=== PATIENT | female | born 1945 | race Hispanic/Latino ===

== ENCOUNTER 2018-08-08 21:06 | Observation (INO) | payer MEDICARE, OTHER ==
[2018-08-08] MEDS ORDERED: Aspirin 325 mg EC Tablets PO STA (22:08)
[2018-08-08] MEDS ORDERED: Nitroglycerin 2% Ointment Foilpak UD TOP STA (22:08)
--- NOTE | 2018-08-08 22:08 | C.PDOC ---
History Of Present Illness 73 year old female presents to the ED c/o on and off burning chest pain that started 4 hours ago. Patient reports the episodes last 5 minutes and the resolved. Patient had angioplasty done on Saturday that was normal, study was done by Dr. Johns. Patient states today she started feeling the burning chest pain. Patient denies fever, chills, SOB, nausea, vomit, dizziness, headache, weakness, numbness. Time Seen by Provider: 08/08/18 21:47 Chief Complaint (Nursing): Chest Pain History Per: Patient History/Exam Limitations: no limitations Onset/Duration Of Symptoms: Hrs (4), Intermittent Episodes Current Symptoms Are (Timing): Still Present Severity: None Quality: Burning Recent travel outside of the [place]: No Additional History Per: Patient Past Medical History Reviewed: Historical Data, Nursing Documentation, Vital Signs Vital Signs: Last Vital Signs Temp 97.7 F 08/08/18 21:16 Pulse 68 08/08/18 21:16 Resp 20 08/08/18 21:16 BP 156/80 H 08/08/18 21:16 Pulse Ox 95 08/08/18 21:16 - Medical History PMH: No Chronic Diseases Surgical History: No Surg Hx Family History: States: Unknown Family Hx - Social History Hx Alcohol Use: No Hx Substance Use: No - Immunization History Hx Tetanus Toxoid Vaccination: No Hx Influenza Vaccination: No Hx Pneumococcal Vaccination: No Review Of Systems Constitutional: Negative for: Fever, Chills Cardiovascular: Positive for: Chest Pain. Negative for: Palpitations Respiratory: Negative for: Shortness of Breath Gastrointestinal: Negative for: Nausea, Vomiting Neurological: Negative for: Weakness, Numbness, Headache Psych: Negative for: Depression, Suicidal ideation Physical Exam - Physical Exam Appears: Non-toxic, No Acute Distress Skin: Normal Color, Warm, Dry Head: Atraumatic, Normacephalic Eye(s): bilateral: Normal Inspection Neck: Normal ROM, Supple Chest: Symmetrical Cardiovascular: Rhythm Regular Respiratory: Normal Breath Sounds, No Rales, No Rhonchi, No Wheezing Gastrointestinal/Abdominal: Soft, No Tenderness, No Guarding, No Rebound Extremity: Normal ROM, No Tenderness, No Swelling Neurological/Psych: Oriented x3, Normal Speech, Normal Cognition Gait: Steady ED Course And Treatment - Laboratory Results Result Diagrams: 08/08/18 22:23 08/08/18 22:23 ECG: Interpreted By Me ECG Rhythm: Sinus Rhythm ECG Interpretation: Normal Rate From EC O2 Sat by Pulse Oximetry: 95 (ON RA) Pulse Ox Interpretation: Normal - Radiology CXR: Interpreted by Me, Viewed By Me CXR Interpretation: Yes: No Acute Disease. No: Infiltrates - CT Scan/US CT chest Other Rad Studies (CT/US): Read By Radiologist, Radiology Report Reviewed CT/US Interpretation: CT SCAN OF THE CHEST WITHOUT IV CONTRAST. CLINICAL INDICATION: Chest pain. TECHNIQUE: Axial and reformatted sagittal and coronal images of the chest obtained without IV contrast administration. FINDINGS: Normal unenhanced main pulmonary artery and right and left pulmonary arteries. Normal bilateral peripheral pulmonary arteries. Normal thoracic aorta and visualized great vessels. There is no demonstrated aortic aneurysm. Normal heart and pericardium. Normal mediastinum. Normal hilar regions. Normal visualized trachea and bronchi. Bilateral basilar atelectatic pulmonary changes. The lungs are well expanded. Normal pulmonary parenchyma. Normal pleura. Normal chest wall structures. Spondylosis. Normal visualized upper abdomen. IMPRESSION: No CT evidence of acute pathology. . Electronically signed on Aug 09, 2018 12:34:56 AM EDT by: Rosalina Grover M.D., Certified by ABR, MSK, Neuroradiology Progress - Re-Evaluation Re-evaluation Note: 08/08/18 22:08 D/W DR JOHNS STATES ANGIO WAS "NORMAL". RECOMMENDS OBS, WILL CONSULT 08/08/18 22:[address] Enoch GUIDRY C/F PMD WILL ADMIT - Data Reviewed Data Reviewed: Lab, Diagnostic imaging, EKG, Old records Medical Decision Making Medical Decision Making: Plan: * EKG * Labs * CXR * Aspiring 325 mg PO * Nitroglycerin 1 ea TOP Disposition Counseled Patient/Family Regarding: Studies Performed, Diagnosis - Disposition Disposition: HOSPITALIZED Disposition Time: 22:14 Condition: STABLE - POA Present On Arrival: None - Clinical Impression Clinical Impression: Chest pain - Scribe Statement The provider has reviewed the documentation as recorded by the Scribe Aj Garcia All medical record entries made by the Scribe were at my direction and personally dictated by me. I have reviewed the chart and agree that the record accurately reflects my personal performance of the history, physical exam, medical decision making, and the department course for this patient. I have also personally directed, reviewed, and agree with the discharge instructions and disposition.
[2018-08-08] MEDS ORDERED: Nitroglycerin 2% Ointment Foilpak UD TOP ONE (22:26)
[2018-08-08] MEDS ORDERED: Aspirin 325 mg EC Tablets PO ONE (22:26)
[2018-08-08 22:33] LABS: BASO % 0.4 % (0.0-2.0); EOS # 0.3 K/uL (0.0-0.7); EOS % 2.8 % (0.0-4.0); HEMOGLOBIN 14.2 g/dL (11.0-16.0); LYMPH # 4.5 K/uL (1.0-4.3); LYMPH % 43.7 % (20.0-40.0); MEAN CELL VOLUME 89.2 fL (81.0-99.0); MEAN CORPUSCULAR HEMOGLOBIN 29.8 pg (27.0-31.0); MEAN CORPUSCULAR HGB CONC 33.5 g/dL (33.0-37.0); MEAN PLATELET VOLUME 8.4 fL (7.2-11.7); MONO # 0.9 K/uL (0.0-0.8); MONO % 8.5 % (0.0-10.0); NEUT # 4.6 K/uL (1.8-7.0); NEUT % 44.6 % (50.0-75.0); NRBC % 0.1 % (0.0-2.0); RBC 4.76 Mil/uL (3.80-5.20); RED CELL DISTRIBUTION WIDTH 13.8 % (11.5-14.5); WHITE BLOOD COUNT 10.4 K/uL (4.8-10.8)
[2018-08-08 22:38] LABS: INR 1.1; PROTHROMBIN TIME 11.5 SECONDS (9.7-12.2)
[2018-08-08 22:41] LABS: ALB/GLOB RATIO 1.1 (1.0-2.1); ALBUMIN 4.1 g/dL (3.5-5.0); ALT/SGPT 14 U/L (9-52); AST/SGOT 20 U/L (14-36); BLOOD UREA NITROGEN 20 mg/dL (7-17); CALCIUM 9.6 mg/dl (8.6-10.4); GFR NON-AFRICAN AMERICAN > 60
--- NOTE | 2018-08-08 23:11 | CP.PCM.HP ---
Past Patient History - Past Social History Smoking Status: Never Smoked - CARDIAC Other/Comment: Pt unable to tell but had cardiac cath with Dr Johns Saturday08/04/18 - PSYCHIATRIC Hx Substance Use: No - SURGICAL HISTORY Hx Cardiac Catheterization: Yes (08/04/18) - ANESTHESIA Hx Anesthesia: Yes Hx Anesthesia Reactions: No Meds Allergies/Adverse Reactions: Allergies Allergy/AdvReac Type Severity Reaction Status Date / Time acetaminophen [From Percocet] Allergy Verified 08/08/18 21:24 oxycodone [From Percocet] Allergy Verified 08/08/18 21:24 Results - Vital Signs Recent Vital Signs: Last Vital Signs Temp 97.7 F 08/08/18 21:16 Pulse 68 08/08/18 21:16 Resp 20 08/08/18 21:16 BP 156/80 H 08/08/18 21:16 Pulse Ox 95 08/08/18 22:38 - Labs Result Diagrams: 08/08/18 22:23 08/08/18 22:23 Labs: Laboratory Results - last 24 hr 08/08/18 08/08/18 08/08/18 22:23 22:23 22:23 WBC 10.4 RBC 4.76 Hgb 14.2 Hct 42.5 MCV 89.2 MCH 29.8 MCHC 33.5 RDW 13.8 Plt Count 239 MPV 8.4 Neut % (Auto) 44.6 L Lymph % (Auto) 43.7 H [place] % (Auto) 8.5 Eos % (Auto) 2.8 Baso % (Auto) 0.4 Neut # (Auto) 4.6 Lymph # (Auto) 4.5 H [place] # (Auto) 0.9 H Eos # (Auto) 0.3 Baso # (Auto) 0.0 PT 11.5 INR 1.1 APTT 34 Sodium 141 Potassium 4.1 Chloride 107 Carbon Dioxide 22 Anion Gap 17 BUN 20 H Creatinine 0.7 Est GFR ( Amer) > 60 Est GFR (Non-Af Amer) > 60 Random Glucose 115 H Calcium 9.6 Total Bilirubin 0.3 AST 20 ALT 14 Alkaline Phosphatase 105 Troponin I < 0.0120 Total Protein 7.9 Albumin 4.1 Globulin 3.8 Albumin/Globulin Ratio 1.1
[2018-08-09 07:06] LABS: CK-MB 0.76 ng/mL (0.0-3.38)
[2018-08-09] MEDS ORDERED: Home Med 1 UNIT (Atorvastatin [Lipitor] 10 MG) PO SCH (10:00)
[2018-08-09] MEDS ORDERED: Aspirin 325 mg EC Tablets PO SCH (10:00)
[2018-08-09] MEDS ORDERED: Enoxaparin 40 mg Syringe SC SCH (10:00)
[2018-08-09] MEDS ORDERED: Pantoprazole 40 mg EC Tab PO SCH (10:00)
[2018-08-09] MEDS ORDERED: Enoxaparin 40 mg Syringe ONE (10:14)
[2018-08-09] MEDS ORDERED: Pantoprazole 40 mg EC Tab PO ONE (10:15)
--- NOTE | 2018-08-09 11:52 | CT ---
Date of service: 08/08/2018 PROCEDURE: CT Chest without contrast HISTORY: Chest pain COMPARISON: Comparison made with chest radiograph obtained earlier same day TECHNIQUE: Contiguous axial images were obtained through the chest without intravenous contrast enhancement. Sagittal and coronal reconstructions were performed. Radiation dose (DLP): 818.15 mGy-cm. This CT exam was performed using one or more of the following dose reduction techniques: Automated exposure control, adjustment of the mA and/or kV according to patient size, and/or use of iterative reconstruction technique. FINDINGS: LUNGS: No acute consolidation.. Some minimal linear scarring changes seen in the left lingular region and left lung base as well as to a lesser degree right middle lobe. No obvious parenchymal one masses. MEDIASTINUM: Heart size is within range of normal. No significant pericardial effusion. Ascending thoracic aorta measures approximately 3.1 cm and descending thoracic aorta measures approximately 2.3 cm pulmonary trunk measures approximately 3.1 cm. Near There are a few small nonspecific mediastinal lymph nodes. Evaluation for hilar adenopathy limited due to the lack of circulating intravenous contrast material. Central airways midline and patent. No large central endoluminal lesions. There is a small hiatal hernia with minor the wall thickening of the distal esophagus likely due to protrusion gastric mucosa. PLEURA: No pleural fluid. No pneumothorax. BONES: Minor multilevel degenerative spondylosis of the thoracic spine. There are no acute compression fractures no retropulsed fragments. No obvious destructive changes. UPPER ABDOMEN: Cholecystectomy. Pancreas is slightly atrophic and fatty replaced. OTHER FINDINGS: None. IMPRESSION: Minor atelectasis/scarring changes seen in the left lung base left lingular and middle lobe regions..
[2018-08-09 13:02] VITALS: RESP 16
[2018-08-09 14:56] LABS: CK-MB 0.74 ng/mL (0.0-3.38)
--- NOTE | 2018-08-09 15:37 | CP.PCM.PN ---
Subjective - Date & Time of Evaluation Date of Evaluation: 08/09/18 Time of Evaluation: 11:15 - Subjective Subjective: clinically same Objective - Vital Signs/Intake and Output Vital Signs (last 24 hours): Temp Pulse Resp BP Pulse Ox 97.6 F 75 16 125/55 L 95 08/09/18 06:25 08/09/18 13:02 08/09/18 13:02 08/09/18 13:02 08/09/18 13:02 - Medications Medications: Current Medications Aspirin (Ecotrin) 325 mg PO DAILY [facility] Last Admin: 08/09/18 10:09 Dose: Not Given Enoxaparin Sodium (Lovenox) 40 mg SC DAILY [facility] Last Admin: 08/09/18 10:23 Dose: 40 mg Home Med (Atorvastatin [Lipitor]) 10 mg PO DAILY [facility] Pantoprazole Sodium (Protonix Ec Tab) 40 mg PO DAILY [facility] Last Admin: 08/09/18 10:23 Dose: 40 mg - Labs Labs: 08/08/18 22:23 08/08/18 22:23 PT 11.5 SECONDS (9.7-12.2) 08/08/18 22:23 INR 1.1 08/08/18 22:23 APTT 34 SECONDS (21-34) 08/08/18 22:23 - Constitutional Appears: Well - Head Exam Head Exam: ATRAUMATIC, NORMAL INSPECTION, NORMOCEPHALIC - Eye Exam Eye Exam: EOMI, Normal appearance, PERRL Pupil Exam: NORMAL ACCOMODATION, PERRL - ENT Exam ENT Exam: Mucous Membranes Moist, Normal Exam - Neck Exam Neck Exam: Full ROM, Normal Inspection. absent: Lymphadenopathy - Respiratory Exam Respiratory Exam: Decreased Breath Sounds - Cardiovascular Exam Cardiovascular Exam: REGULAR RHYTHM, +S1, +S2 - GI/Abdominal Exam GI & Abdominal Exam: Soft, Diminished Bowel Sounds - Rectal Exam Rectal Exam: Deferred
--- NOTE | 2018-08-09 16:09 | RAD ---
Date of service: 08/08/2018 HISTORY: chest pain COMPARISON: No prior. TECHNIQUE: Chest PA and lateral FINDINGS: LUNGS: Minor bibasilar atelectasis PLEURA: No significant pleural effusion identified. No pneumothorax apparent. CARDIOVASCULAR: Mild cardiomegaly OSSEOUS STRUCTURES: No significant abnormalities. VISUALIZED UPPER ABDOMEN: Normal. OTHER FINDINGS: None. IMPRESSION: Minor bibasilar atelectasis.
[2018-08-09 16:14] VITALS: BP 131/72; PULSE 81; TEMP 98.3; O2SAT 98
--- NOTE | 2018-08-11 08:00 | CARD ---
APPROVED REPORT Date of service: 08/08/2018 EKG Measurement Heart [id number] OR [id number] <Conclusion> Normal sinus rhythm Normal ECG
== END 2018-08-09 16:46 | disposition left against medical advice (07) ==
LOC: C.ER 21:06 → C.9E 22:14 → C.5S 08-09 15:20 → C.9E 08-09 17:09
PROVIDERS: ADMIT Internal Medicine Nephrology; ATTEND Internal Medicine Nephrology
DX: R07.9 Chest pain, unspecified (principal)
CPT/HCPCS: 71046; 71250; 80053; 84484; 85025; 85610; 85730; 96372; 99285; G0378; J1650